=== PATIENT | female | born 1970 | race Caucasian/White ===

== ENCOUNTER → 2018-09-23 | Outpatient (CLI) | payer BC ==
--- NOTE | 2018-09-23 16:37 | Diagnostic Imaging Report ---
EXAMINATION: CHEST 2 VIEWS, RIBS UNILAT W/CXR INDICATION: Left rib pain COMPARISON: None FINDINGS: LINES/TUBES:None LUNGS:The lungs are well-inflated. No focal consolidation or pulmonary edema. PLEURA:No pleural effusion or pneumothorax. MEDIASTINUM:The cardiomediastinal silhouette appears normal in size and shape. BONES/SOFT TISSUES:No displaced rib fracture. ABDOMEN:No free air under the diaphragm. IMPRESSION: No displaced rib fractures. No focal pneumonia or pulmonary edema. Signed by: Bartolo Urias MD on 09/23/2018 4:34 PM
== END ==
LOC: RAD 15:16
PROVIDERS: ATTEND Internal Medicine
DX: R07.81 Pleurodynia (principal)
CPT/HCPCS: 71046; 71101

== ENCOUNTER → 2024-06-09 | Outpatient (REF) | payer OTHER | LOC: RAD 07:46 | PROVIDERS: ATTEND Nurse Practitioner Psychiatric/Mental Health | DX: F90.0 Attention-deficit hyperactivity disorder, predominantly inattentive type (principal) | CPT/HCPCS: 93005 ==